=== PATIENT | male | born 1950 ===

== ENCOUNTER → 2025-01-04 | Outpatient (CLI) | payer MEDICARE, OTHER | END | disposition home or self-care (01) | LOC: LAB 14:44 | PROVIDERS: ATTEND Nurse Practitioner Family | DX: I82.501 Chronic embolism and thrombosis of unspecified deep veins of right lower extremity (principal) ==

== ENCOUNTER → 2025-01-10 | Outpatient (CLI) | payer MEDICARE ==
[2025-01-10 11:08] LABS: MEAN CELL VOLUME 108.4 fl (80.0-94.0); MEAN CORPUSCULAR HGB 36.3 pg (27.0-31.0); MEAN PLATELET VOLUME 9.8 fl (9.6-12.3); NUCLEATED RED BLOOD CELL 0.0 % (0.0-0.0); NUCLEATED RED BLOOD CELL 0.0 10*3/uL (0.0-0.0); PLATELET COUNT AUTOMATED 144 10*3/uL (130-400); RED CELL DISTRI WIDTH 14.0 % (0-14.5)
[2025-01-10 11:09] LABS: MANUAL DIFF REFLEX YES
[2025-01-10 11:30] LABS: BUN 19 mg/dl (9-23); LDL CHOLESTEROL 55 mg/dL (9-159); SGPT/ALT 16 U/L (5-49)
[2025-01-10 11:54] LABS: PLATELET SUFFICIENCY NORMAL (NORMAL)
== END | disposition home or self-care (01) ==
LOC: RHCWE 10:49
PROVIDERS: ATTEND Nurse Practitioner Family
DX: I82.501 Chronic embolism and thrombosis of unspecified deep veins of right lower extremity (principal); I10 Essential (primary) hypertension; E78.2 Mixed hyperlipidemia; Z76.89 Persons encountering health services in other specified circumstances; Z87.438 Personal history of other diseases of male genital organs; E11.69 Type 2 diabetes mellitus with other specified complication; Z12.5 Encounter for screening for malignant neoplasm of prostate

== ENCOUNTER → 2025-01-17 | Outpatient (CLI) | payer MEDICARE | END | disposition home or self-care (01) | LOC: RHCWE 10:30 | PROVIDERS: ATTEND Nurse Practitioner Family | DX: Z51.81 Encounter for therapeutic drug level monitoring (principal); Z79.01 Long term (current) use of anticoagulants ==